=== PATIENT | male | born 1940 | race Caucasian/White ===

== ENCOUNTER 2017-09-08 10:05 | Emergency (ER) | payer OTHER ==
[~2017-09-08] VITALS: Ht 175.3 cm; Wt 86.2 kg
[~2017-09-08 10:05] MED LIST: ASPI81TA21 PO; LISI-461 PO; METF850T PO; METO50TA7 PO; PRAV20TA PO; RANI150T3 PO
[2017-09-08 10:15] VITALS: TEMP 37.1; Ht 175.3 cm; Wt 86.2 kg
[2017-09-08] MEDS ORDERED: ASCO100T4 PO (10:53)
--- NOTE | 2017-09-08 11:07 | DIAGNOSTIC IMAGING REPORT ---
CHEST ONE VIEW PORTABLE CLINICAL HISTORY: Chest pain. COMPARISON STUDY: Chest radiograph March 01, 2012. FINDINGS: Lung volumes are normal. There is no consolidation. Pulmonary vascularity is normal. No pneumothorax or pleural effusion is noted. Patient is mildly rotated. IMPRESSION: No acute cardiopulmonary findings. Electronically signed by: Aldair Ferrer M.D. 09/08/2017 11:06 AM Dictated Date/Time: 09/08/2017 11:05 AM
[2017-09-08 11:08] LABS: BASO % 0.2 %; BASO ABS # 0.03 K/uL (0-0.2); EOS % 0.5 %; EOS ABS # 0.07 K/uL (0-0.5); HEMATOCRIT 37.8 % (42-52); HEMOGLOBIN 12.5 g/dL (14.0-18.0); IG# 0.04 K/uL (0.00-0.02); LYMPH % 6.4 %; LYMPH ABS # 0.82 K/uL (1.2-3.4); MEAN CELL VOLUME 90.9 fL (80-100); MEAN CORPUSCULAR HGB CONC 33.1 g/dl (32-36); MEAN PLATELET VOLUME 10.1 fL (7.4-10.4); MONO % 17.2 %; MONO ABS # 2.19 K/uL (0.11-0.59); NEUT % 75.4 %; PLATELET COUNT 239 K/uL (130-400); RED CELL DISTRIBUTION WIDTH CV 14.3 % (11.5-14.5); RED CELL DISTRIBUTION WIDTH SD 47.8 fL (36.4-46.3); WHITE BLOOD COUNT 12.75 K/uL (4.8-10.8)
[2017-09-08 11:27] LABS: CREATININE 1.05 mg/dl (0.60-1.40); POTASSIUM 4.3 mmol/L (3.5-5.1)
[2017-09-08 11:29] LABS: INFLUENZA B ANTIGEN Neg for Influ B (NEG)
[2017-09-08] MEDS ORDERED: AMOX875T PO (11:55)
[2017-09-08] MEDS ORDERED: AMOXICILLIN/CLAVULANATE TAB 875 MG TAB PO ONE (12:00)
[2017-09-08 12:13] VITALS: BP 168/76; PULSE 84; O2SAT 92
--- NOTE | 2017-09-08 12:16 | EMERGENCY ROOM VISIT NOTE ---
History Report prepared by Ratna: Francis Fonseca Under the Supervision of: Dr. Arturo Macias M.D. First contact with patient: 10:20 Chief Complaint: FLU LIKE SX Stated Complaint: UPPER RESPIRATORY History of Present Illness The patient is a 76 year old male who presents to the Emergency Room with complaints of persistent generalized illness beginning one week ago. His symptoms include productive cough, SOB, fatigue, runny nose, headache, body aches, and subjective fever. His cough produces a yellow sputum. The patient denies abdominal pain, diarrhea, urinary symptoms, chest pain, sore throat, or leg pain or swelling. He denies recent carbon monoxide exposure. He did not have a flu-shot this year. Source of History: patient Onset: One week ago Position: other (generalized) Quality: other (illness) Timing: other (persistent) Associated Symptoms: + fevers (subjective), + headache, + cough (produces yellow sputum), No sorethroat, No chest pain, No abdominal pain Note: Additional symptoms: runny nose and body aches. He denies leg pain or swelling. Review of Systems See HPI for pertinent positives & negatives. A total of 10 systems reviewed and were otherwise negative. Past Medical & Surgical Medical Problems: (1) Diabetes (2) HLD (hyperlipidemia) (3) HTN (hypertension) Old medical records were reviewed. Nurse's notes were reviewed and I agree with. Family History No pertinent family history stated. Social History Smoking Status: Never Smoker Alcohol Use: none Marital Status: Current/Historical Medications Scheduled Amoxicillin & Pot Clavulanate (Augmentin 875-125 mg), 875 MG PO BID Ascorbic Acid (Vitamin C), 100 MG PO HS Aspirin Enteric Coated (Ecotrin Or Generic), 81 MG PO DAILY Lisinopril (Zestril), 10 MG PO DAILY Metformin Hcl (Glucophage), 850 MG PO BID Metoprolol Succ (Toprol Xl) (Toprol-Xl), 50 MG PO DAILY Pravastatin Sodium (Pravachol), 40 MG PO DAILY Ranitidine Hcl (Zantac), 150 MG PO BID Allergies Coded Allergies: Apple (Verified Allergy, Intermediate, SWELLING WITH RAW APPLES, 09/08/17) [place] (Verified Allergy, Intermediate, SWELLING WITH RAW PEACHES, 09/08/17) Physical Exam Vital Signs Date Time Temp Pulse Resp B/P (MAP) Pulse Ox O2 Delivery O2 Flow Rate FiO2 09/08/17 12:13 84 16 168/76 92 09/08/17 11:57 84 16 168/76 92 Room Air 09/08/17 10:15 37.1 68 20 163/76 98 Room Air Physical Exam General: Non-toxic older male in no acute distress. Frequent hacking cough. HEENT: Normal cephalic atraumatic. Pupils are equal round and reactive to light. Extraocular movements are intact. Oropharynx is pink with moist mucous membranes. No swelling of the mouth lips or tongue. Neck: Supple with a midline trachea. No meningeal signs or stiffness, no JVD or bruits. No Stridor. Chest: Clear to auscultation bilaterally. No wheezes or rhonchi. No increased work of breathing. Heart: regular rate and rhythm. Abdomen: Soft nontender, nondistended without rebound guarding or rigidity. Extremities: No cyanosis clubbing or edema. No calf tenderness or assymetry Spine/Back. Non tender to palpation. No CVA tenderness Skin: Good turgor without rashes. Neurologic exam: Cranial nerves two through 12 are intact. Motor and sensation are intact and symmetrical throughout. Medical Decision & Procedures ER Provider Diagnostic Interpretation: Radiology results as stated below per my review and radiologist interpretation: CHEST ONE VIEW PORTABLE FINDINGS: Lung volumes are normal. There is no consolidation. Pulmonary vascularity is normal. No pneumothorax or pleural effusion is noted. Patient is mildly rotated. IMPRESSION: No acute cardiopulmonary findings. Electronically signed by: Aldair Ferrer M.D. 09/08/2017 11:06 AM Laboratory Results 09/08/17 10:55 Red Blood Count 4.16, Mean Corpuscular Volume 90.9, Mean Corpuscular Hemoglobin 30.0, Mean Corpuscular Hemoglobin Concent 33.1, Mean Platelet Volume 10.1, Neutrophils (%) (Auto) 75.4, Lymphocytes (%) (Auto) 6.4, Monocytes (%) (Auto) 17.2, Eosinophils (%) (Auto) 0.5, Basophils (%) (Auto) 0.2, Neutrophils # (Auto ) 9.60, Lymphocytes # (Auto) 0.82, Monocytes # (Auto) 2.19, Eosinophils # (Auto ) 0.07, Basophils # (Auto) 0.03 09/08/17 10:55 Test 09/08/17 10:45 09/08/17 10:55 Influenza Type A Antigen Neg for Influ A (NEG) Influenza Type B Antigen Neg for Influ B (NEG) White Blood Count 12.75 K/uL (4.8-10.8) Red Blood Count 4.16 M/uL (4.7-6.1) Hemoglobin 12.5 g/dL (14.0-18.0) Hematocrit 37.8 % (42-52) Mean Corpuscular Volume 90.9 fL (80-100) Mean Corpuscular Hemoglobin 30.0 pg (25-34) Mean Corpuscular Hemoglobin Concent 33.1 g/dl (32-36) Platelet Count 239 K/uL (130-400) Mean Platelet Volume 10.1 fL (7.4-10.4) Neutrophils (%) (Auto) 75.4 % Lymphocytes (%) (Auto) 6.4 % Monocytes (%) (Auto) 17.2 % Eosinophils (%) (Auto) 0.5 % Basophils (%) (Auto) 0.2 % Neutrophils # (Auto) 9.60 K/uL (1.4-6.5) Lymphocytes # (Auto) 0.82 K/uL (1.2-3.4) Monocytes # (Auto) 2.19 K/uL (0.11-0.59) Eosinophils # (Auto) 0.07 K/uL (0-0.5) Basophils # (Auto) 0.03 K/uL (0-0.2) RDW Standard Deviation 47.8 fL (36.4-46.3) RDW Coefficient of Variation 14.3 % (11.5-14.5) Immature Granulocyte % (Auto) 0.3 % Immature Granulocyte # (Auto) 0.04 K/uL (0.00-0.02) Anion Gap 8.0 mmol/L (3-11) Est Creatinine Clear Calc Drug Dose 67.2 ml/min Estimated GFR () 80.7 Estimated GFR (Non- 69.6 BUN/Creatinine Ratio 15.0 (10-20) Calcium Level 9.0 mg/dl (8.5-10.1) Laboratory studies as stated above per my review. Medications Administered Medications (Trade) Dose Ordered Sig/Guerrero Route Start Time Stop Time Status Last Admin Dose Admin Amoxicillin/ Clavulanate Potassium (Augmentin Tab) 875 mg ONE ONCE PO 09/08/17 12:00 09/08/17 12:01 DC 09/08/17 12:01 875 MG ECG Indication: SOB/dyspnea Rate (beats per minute): 87 Rhythm: normal sinus Findings: no acute ischemic change, no ectopy Comparison ECG Date: March 01, 2012 Change: no significant change ED Course 1025: Past medical records reviewed. The patient was evaluated in room C2A, and a complete history and physical examination were performed. 1145: Upon reevaluation, the patient is resting comfortably. I discussed the results and treatment plan with him. He verbalized agreement of the treatment plan. The patient was discharged home. 1200: Ordered Augmentin Tab 875 mg PO. Medical Decision Differentials include, but are not limited to; influenza, pneumonia, bronchitis , cardiac disease and electrolyte or metabolic abnormality. This patient was in as described above .he has a cough and URI type symptoms as well as some sinus drainage. His is also being seen with similar complaints. He has a dry hacking cough on exam. Chest x-ray was unremarkable. He is not hypoxemic and has nothing to suggest sepsis. His white count mildly elevated and he has no acute electrolyte or metabolic abnormalities. He has nothing to suggest cardiac disease and has a nonischemic appearing EKG. I will treat him with Augmentin for a possible bronchitis/sinusitis. He should rest and drink plenty is use [id number] Robitussin DM or other cough medication return ER if worsening symptoms, any new problems or concerns. Follow -up with his regular doctor in the next couple days for recheck Medication Reconcilliation Current Medication List: was personally reviewed by me Blood Pressure Screening Patient's blood pressure: Elevated blood pressure Blood pressure disposition: Referred to PCP Impression Primary Impression: Acute bronchitis Scribe Attestation The scribe's documentation has been prepared under my direction and personally reviewed by me in its entirety. I confirm that the note above accurately reflects all work, treatment, procedures, and medical decision making performed by me. Departure Information Dispostion Home / Self-Care Prescriptions Amoxicillin & Pot Clavulanate (Augmentin 875-125 mg) 1 Tab Tab 875 MG PO BID for 7 Days, #14 TAB Prov: Arturo Macias M.D. 09/08/17 Referrals Kareem Hernández M.D. (PCP) Forms HOME CARE DOCUMENTATION FORM, IMPORTANT VISIT INFORMATION Patient Instructions My [facility] MONOQI Additional Instructions Rest. Drink plenty of fluids. May use [id number] cough medicine such as Robitussin DM Use Augmentin 875 mg twice a day for 7 daysantibiotic Return if: Worsening of symptoms, shortness of breath, difficulty speaking or swallowing, any new problems or concerns Follow-up with your doctor in the next 1-2 days for recheck if not better
== END 2017-09-08 12:13 | disposition home or self-care (01) ==
LOC: C.EDB 10:07 → C.EDC 12:13
DX: R05 Cough (principal); R06.02 Shortness of breath; J34.89 Other specified disorders of nose and nasal sinuses; R53.83 Other fatigue; R51 Headache; D72.829 Elevated white blood cell count, unspecified; E11.9 Type 2 diabetes mellitus without complications; I10 Essential (primary) hypertension; E78.5 Hyperlipidemia, unspecified; Z79.84 Long term (current) use of oral hypoglycemic drugs